=== PATIENT | female | born 1975 | race Caucasian/White ===

== ENCOUNTER → 2020-10-25 | Outpatient (CLI) | payer OTHER ==
[~2020-10-25] MED LIST: BUPR-86 PO; BUPR100T11 PO; IBUP200T49 PO; NITR100C6 PO; ONDA4TAB7 PO; OXYC-302 PO; ZOLP5TAB6 PO
== END | disposition home or self-care (01) ==
LOC: ROC 07:34
PROVIDERS: ATTEND Radiology Radiation Oncology
DX: C44.311 Basal cell carcinoma of skin of nose (principal)
CPT/HCPCS: 99214; G0463

== ENCOUNTER 2021-01-07 07:38 | Outpatient (CLI) | payer OTHER ==
[~2021-01-07 07:38] MED LIST changes: -OXYC-302 PO; +OXYC1TAB14 PO
== END 2021-01-07 23:59 | disposition home or self-care (01) ==
LOC: ROC 07:38
PROVIDERS: ATTEND Radiology Radiation Oncology
DX: Z08 Encounter for follow-up examination after completed treatment for malignant neoplasm (principal); C44.311 Basal cell carcinoma of skin of nose
CPT/HCPCS: 99212; G0463